=== PATIENT | male | born 2000 | race Caucasian/White ===

== ENCOUNTER 2021-10-04 19:53 | Emergency (ER) | payer OTHER ==
[~2021-10-04] VITALS: Ht 175 cm; Wt 65.0 kg
[2021-10-04 20:19] VITALS: BP 114/78
== END 2021-10-04 20:38 | disposition left against medical advice (07) ==
LOC: ER 19:55
DX: R69 Illness, unspecified (principal)
CPT/HCPCS: 99283

== ENCOUNTER 2022-02-21 14:06 | Emergency (ER) | payer OTHER ==
[~2022-02-21] VITALS: Ht 172.7 cm; Wt 72.6 kg
[2022-02-21] MEDS ORDERED: LORazepam 0.5 MG (ATIVAN) TABLET PO STA (14:19)
[2022-02-21 14:22] LABS: BASOPHILS % (AUTO) 0 % (0-10); EOSINOPHILS # (AUTO) 0.2 10^3/uL (0.0-0.3); EOSINOPHILS % (AUTO) 1 % (0-10); HEMATOCRIT 48 % (40-54); HEMOGLOBIN 16.2 g/dL (13.3-17.7); LYMPHOCYTES # (AUTO) 3.1 10^3/uL (1.0-4.0); LYMPHOCYTES % (AUTO) 26 % (12-44); MEAN CORPUSCULAR HEMOGLOBIN 31 pg (25-34); MEAN CORPUSCULAR HGB CONC 34 g/dL (32-36); MEAN CORPUSCULAR VOLUME 92 fL (80-99); MONOCYTES # (AUTO) 0.9 10^3/uL (0.0-1.0); MONOCYTES % (AUTO) 7 % (0-12); NEUTROPHILS # (AUTO) 7.9 10^3/uL (1.8-7.8); NEUTROPHILS % (AUTO) 65 % (42-75); PLATELET COUNT 190 10^3/uL (130-400); WHITE BLOOD COUNT 12.2 10^3/uL (4.3-11.0)
[2022-02-21 14:40] LABS: ALANINE AMINOTRANSFERASE 26 U/L (0-55); ALBUMIN 4.9 GM/DL (3.2-4.5); ALKALINE PHOSPHATASE 120 U/L (40-136); BILIRUBIN,TOTAL 0.4 MG/DL (0.1-1.0); BUN/CREATININE RATIO 30; CALCIUM 10.1 MG/DL (8.5-10.1); CARBON DIOXIDE 25 MMOL/L (21-32); CHLORIDE 103 MMOL/L (98-107); CREATININE SERUM 0.98 MG/DL (0.60-1.30); GFR ESTIMATED 111; GLUCOSE 103 MG/DL (70-105); MAGNESIUM 1.9 MG/DL (1.6-2.4); POTASSIUM 3.7 MMOL/L (3.6-5.0); SODIUM 142 MMOL/L (135-145); TOTAL PROTEIN 7.7 GM/DL (6.4-8.2)
--- NOTE | 2022-02-21 14:42 | ED Cardiac General ---
History of Present Illness General Chief Complaint: Chest Pain Stated Complaint: OVERDOSE Nursing Triage Note: Patient reports he has been practicing a keto diet and took supplemental potassium this morning. He reports he was at [facility] and began feeling "bad." Patient brought in by EMS with chief complaint of chest pain on arrival to the ED. Source: patient Exam Limitations: no limitations History of Present Illness Date Seen by Provider: February 21, 2022 Time Seen by Provider: 14:00 Initial Comments Patient is a 21-year-old male who presents with palpitations, clamminess weakness fatigue and chest pain starting 2 hours prior to ED arrival. Patient states he is currently taking [id number] potassium supplements and protein for a ketogenic diet. Reports dizziness and headache. No nausea or vomiting, abdominal pain. No extremity weakness or loss of sensation. No other acute symptoms or complaints. Timing/Duration: constant Severity: mild Location: central Activities at Onset: other Prior CP/Workup: other Modifying Factors: improves with other Associated Systoms: Other Allergies and Home Medications Allergies Coded Allergies: No Known Drug Allergies (Unverified , 10/04/21) Patient Home Medication List Home Medication List Reviewed: Yes Review of Systems Review of Systems Constitutional: see HPI EENTM: See HPI Respiratory: See HPI Cardiovascular: See HPI Gastrointestinal: See HPI Genitourinary: See HPI Musculoskeletal: see HPI Skin: see HPI Psychiatric/Neurological: See HPI Endocrine: See HPI Hematologic/Lymphatic: See HPI All Other Systems Reviewed Negative Unless Noted: Yes Past Beffexy-Algxij-Edlykx Hx Patient Social History Tobacco Use?: Yes Substance use?: No Alcohol Use?: No Pt feels they are or have been: No Immunizations Up To Date First/Initial COVID19 Vaccinat: Yes Past Medical History Surgery/Hospitalization HX: None Physical Exam Vital Signs Vital Signs - First Documented 02/21/22 14:06 Temp 35.3 Pulse 69 Resp 16 B/P (MAP) 121/50 (73) Pulse Ox 99 O2 Delivery Room Air Capillary Refill : Less Than 3 Seconds Height, Weight, BMI Height: '" Weight: lbs. oz. 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 Norm as Tested Focused Exam Sepsis Stage: Ruled Out Progress/Results/Core Measures Results/Orders Lab Results Laboratory Tests Test 02/21/22 14:10 Range/Units White Blood Count 12.2 H 4.3-11.0 10^3/uL Red Blood Count 5.21 4.30-5.52 10^6/uL Hemoglobin 16.2 13.3-17.7 g/dL Hematocrit 48 40-54 % Mean Corpuscular Volume 92 80-99 fL Mean Corpuscular Hemoglobin 31 25-34 pg Mean Corpuscular Hemoglobin Concent 34 32-36 g/dL Red Cell Distribution Width 11.1 10.0-14.5 % Platelet Count 190 130-400 10^3/uL Mean Platelet Volume 13.0 H 9.0-12.2 fL Immature Granulocyte % (Auto) 0 % Neutrophils (%) (Auto) 65 42-75 % Lymphocytes (%) (Auto) 26 12-44 % Monocytes (%) (Auto) 7 0-12 % Eosinophils (%) (Auto) 1 0-10 % Basophils (%) (Auto) 0 0-10 % Neutrophils # (Auto) 7.9 H 1.8-7.8 10^3/uL Lymphocytes # (Auto) 3.1 1.0-4.0 10^3/uL Monocytes # (Auto) 0.9 0.0-1.0 10^3/uL Eosinophils # (Auto) 0.2 0.0-0.3 10^3/uL Basophils # (Auto) 0.0 0.0-0.1 10^3/uL Immature Granulocyte # (Auto) 0.0 0.0-0.1 10^3/uL Sodium Level 142 135-145 MMOL/L Potassium Level 3.7 3.6-5.0 MMOL/L Chloride Level 103 98-107 MMOL/L Carbon Dioxide Level 25 21-32 MMOL/L Anion Gap 14 5-14 MMOL/L Blood Urea Nitrogen 29 H 7-18 MG/DL Creatinine 0.98 0.60-1.30 MG/DL Estimat Glomerular Filtration Rate 111 BUN/Creatinine Ratio 30 Glucose Level 103 70-105 MG/DL Calcium Level 10.1 8.5-10.1 MG/DL Corrected Calcium 8.5-10.1 MG/DL Magnesium Level 1.9 1.6-2.4 MG/DL Total Bilirubin 0.4 0.1-1.0 MG/DL Aspartate Amino Transf (AST/SGOT) 21 5-34 U/L Alanine Aminotransferase (ALT/SGPT) 26 0-55 U/L Alkaline Phosphatase 120 40-136 U/L Troponin I < 0.30 <0.30 NG/ML Total Protein 7.7 6.4-8.2 GM/DL Albumin 4.9 H 3.2-4.5 GM/DL My Orders Orders - MARIEL MARCUS DO Cbc With Automated Diff (02/21/22 14:19) Comprehensive Metabolic Panel (02/21/22 14:19) Troponin I Fs (02/21/22 14:19) Ekg Tracing (02/21/22 14:19) Magnesium (02/21/22 14:19) Lorazepam Tablet (Ativan Tablet) (02/21/22 14:19) Vital Signs/I&O 02/21/22 14:06 Temp 35.3 Pulse 69 Resp 16 B/P (MAP) 121/50 (73) Pulse Ox 99 O2 Delivery Room Air Blood Pressure Mean: 73 Departure Communication (Admissions) EKG: Sinus bradycardia arrhythmia. Patient with dehydration and palpitation likely related to extreme dieting including supplemental diuretic use. I discussed with the patient the importance of physician supervised dieting and avoidance of supplement use. P atient denies medication or treatment in the ED. Is instruction to increase fluids and follow-up with his PCP next week. Return precautions reviewed. Patient verbalizes understanding agreement discharge instructions prior to departure. Impression Primary Impression: Palpitations Additional Impression: Dehydration Disposition: 01 HOME, SELF-CARE Condition: Stable Departure-Patient Inst. Decision time for Depature: 14:46 Referrals: NO,LOCAL PHYSICIAN (PCP/Family) Primary Care Physician Patient Instructions: Palpitations, Dehydration, Adult ED Add. Discharge Instructions: Please increase fluids and carbohydrate intake. Avoid use of diuretic and K supplement use. Follow up with your PCP in the next 2-3 days for re-evaluation. Return to the ED if new or worsening symptoms. All discharge instructions reviewed with patient and/or family. Voiced understanding. MARIEL MARCUS DO February 21, 2022 14:42
[2022-02-21 14:59] VITALS: BP 121/50
== END 2022-02-21 15:00 | disposition home or self-care (01) ==
LOC: EDUNIT# 14:06 → ER FS 14:07
DX: R00.2 Palpitations (principal); E86.0 Dehydration; I49.8 Other specified cardiac arrhythmias
CPT/HCPCS: 36415; 80053; 83735; 84484; 85025